=== PATIENT | male | born 1955 | race African-American/Black ===

== ENCOUNTER 2019-12-02 18:06 | Emergency (ER) | payer OTHER ==
[2019-12-02 18:58] VITALS: BP 175/91
--- NOTE | 2019-12-02 19:04 | ER Document Report ---
HPI - HPI Time Seen by Provider: 12/02/19 18:40 Pain Level: Denies Notes: 64-year-old male patient presented to the emergency department with concern for bleeding from his right testicle. Patient reports he had a "pimple" in the area and he decided to pop it today. He states it has been bleeding since he popped it. He is not on any blood thinners. He denies any other symptoms. - REPRODUCTIVE Reproductive: DENIES: : Past Medical History - General Information source: Patient - Social History Smoking Status: Never Smoker Chew tobacco use (# tins/day): No Frequency of alcohol use: Occasional Drug Abuse: None Family History: Reviewed & Not Pertinent Patient has homicidal ideation: No - Medical History Medical History: Negative Surgical Hx: Negative - Immunizations Immunizations up to date: Yes Vertical Provider Document - CONSTITUTIONAL Notes: PHYSICAL EXAMINATION: GENERAL: Well-appearing, well-nourished and in no acute distress. HEAD: Atraumatic, normocephalic. EYES: Pupils equal round extraocular movements intact, conjunctiva are normal. ENT: Nares patent NECK: Normal range of motion LUNGS: No respiratory distress Musculoskeletal: Normal range of motion NEUROLOGICAL: Normal speech, normal gait. PSYCH: Normal mood, normal affect. SKIN: Small amount of dried blood noted on the right scrotum, no active bleeding noted. No fluctuance, no induration. Course - Re-evaluation Re-evalutation: 12/02/19 19:02 There is no bleeding noted at the time of my evaluation. Patient did have a dressing in place and had been holding pressure. Will keep the patient here for 30 minutes to ensure no additional bleeding occurs and then will discharge home. - Vital Signs Vital signs: Temp Pulse Resp BP Pulse Ox 98.0 F 96 18 175/91 H 98 12/02/19 18:12 12/02/19 18:11 12/02/19 18:11 12/02/19 18:11 12/02/19 18:11 Discharge - Discharge Clinical Impression: Scrotal bleeding Condition: Stable Disposition: HOME, SELF-CARE Additional Instructions: Since your bleeding has resolved prior to evaluation there is no a whole lot to do at this point. You should keep a Band-Aid on the area. Watch for any further bleeding. If bleeding recurs hold pressure. I would recommend sitting in a sitz bath, you can add Epsom salt to the water if you would like. This will help heal the area of infection. Referrals: LOCALMD,NO [NO LOCAL MD] - Follow up as needed
== END 2019-12-02 19:40 | disposition home or self-care (01) ==
LOC: ER 18:06
DX: N50.1 Vascular disorders of male genital organs (principal)
CPT/HCPCS: 99283